=== PATIENT | female | born 1995 | race Two or more races ===

== ENCOUNTER 2025-02-01 14:38 | Emergency (ER) | payer MEDICAID, SELFPAY ==
[2025-02-01 14:39] VITALS: BMI 37.4
[2025-02-01 16:00] VITALS: BP 113/75; PULSE 65; RESP 16; TEMP 37; O2SAT 99
[2025-02-01] MEDS: LIDOCAINE HCL 1% 20 ML VIAL 10 ML INFL (16:35)
--- NOTE | 2025-02-01 17:34 | PD.EDHAND ---
Upper Extremity Injury RME/HPI General Chief Complaint: Hand/Wrist Problems Stated Complaint: R PINKY INJURY S/P LIFTED NAIL Time Seen by Provider: 02/01/25 14:47 Arrival date/time: 02/01/25 14:38 This is a 29-year-old female that comes in with a complaint complaint of right fifth digit nail avulsion. Patient had acrylic nails and she hit her hand in the car and bent the nail back. Patient's acrylic nail took patient's own nail off as well and is barely hanging. Patient denies any other trauma to her finger. Related Data Previous Rx's ?Medication ?Instructions ?Recorded doxycycline hyclate 100 mg tablet 100 mg PO BID #14 tabs 02/01/25 ibuprofen 800 mg tablet 800 mg PO Q6H PRN pain #14 tabs 02/01/25 Allergies Allergy/AdvReac Type Severity Reaction Status Date / Time No Known Allergies Allergy Verified 02/01/25 14:42 Review of Systems Review of Systems Systems Reviewed: All systems reviewed, normal except as documented Past Medical History Past Medical History NEUROLOGIC: Negative Neurological Disorders or Seizures CARDIAC: Negative Cardiac Disorders or Congestive Heart Failure RESPIRATORY: Negative Chronic Obstructive Pulmonary Disease (COPD) GASTROINTESTINAL: Positive Gastrointestinal Disorders (STOMACH ULCERS, GASTRITIS.) GENITOURINARY: Negative Genitourinary Disorders or Renal Disease REPRODUCTIVE: Positive Previous Pregnancies; Negative Endometriosis, Pelvic Inflammatory Disease or Uterine Prolapse MUSCULOSKELETAL: Positive Musculoskeletal Disorders and Arthritis ENDOCRINE: Negative Endocrine Disorders, Diabetes Mellitus Type 1 or Diabetes Mellitus Type 2 HEMATOLOGIC: Negative Blood Disorders PSYCHO/SOCIAL: Positive Depression (LAST IN 2018) OTHER HISTORY: Positive Hospitalization; Negative Autoimmune Disease, Down Syndrome, Developmental Delay, Shingles, Falls, Blood Transfusions, Blood Transfusion Reaction, Anesthesia Reactions, MRSA, VRSA, Vancomycin-Resistant Enterococci, Human Immunodeficiency Virus (HIV), Chicken Pox, Measles, Mumps, Rubella (Dutch Measles), Pertussis, Clostridium Difficile or Cancer Family History FAMILY HISTORY: Positive Family Cardiac Disorders (PATERNAL GRANDFATHER- HEART ATTACK.) and Family Cancer (PATERNAL UNCLE GRANDMOTHER-CA); Negative Family Psychiatric Problems, Family Respiratory Disorders, Family Gastrointestinal Problems, Family Surgery or Family Anesthesia Reaction Surgical History SURGICAL: Positive Abdominal Surgery; Negative Cardiac Surgery, Endocrine Surgery, Ear Surgery, Nephrectomy, Joint Replacement, Neurologic Surgery or Section Social History SMOKING STATUS: Never smoker SECOND HAND EXPOSURE: No SUBSTANCE USE: does not use ED Exam Narrative Physical exam: VITAL SIGNS: Reviewed. GENERAL APPEARANCE: Alert and interactive, follows commands, no acute distress HEAD AND FACE: Non-traumatic. ENT: PERRL, conjuctiva pink and clear, eyelid no trauma, Mucous membrane moist. NECK: Supple, nontender, no nuchal rigidity. CHEST: No tenderness, no crepitus, no paradoxical movement, no retractions. LUNGS: breathing even and unlabored HEART: Regular rate, cap refill less than 2 seconds ABDOMEN: Soft, nondistended, no guarding, nontender, no rebound, no masses, NEUROLOGICAL: Gross motor function intact sensory function intact, Appropriate for age. MUSCULOSKELETAL: low back nontender, full range of motion. no midline tenderness, no meningismus, no step offs EXTREMITIES: No redness no swelling no skin breakdown on bilateral foot and leg. Distal neurovascular status intact bilateral foot SKIN: Color pink, dry, left fifth digit nail avulsion almost completely partially off nail no laceration and nailbed Course Quality Measures none Orders Category Date Time Status Doxycycline [Vibramycin] Med 02/01/25 17:37 Discontinued 100 mg PO X1 ONE Ibuprofen Tab [Motrin Tab] Med 02/01/25 17:37 Discontinued 800 mg PO X1 ONE Lidocaine 1% 20 ml [Xylocaine 1% 20 ML] Med 02/01/25 16:23 Discontinued 10 ml INFL X1 ONE Vital Signs Vital signs: Vital Signs Temperature 98.6 F 02/01/25 16:00 Pulse Rate 65 02/01/25 16:00 Respiratory Rate 16 02/01/25 16:00 Blood Pressure 113/75 02/01/25 16:00 Pulse Oximetry (%) 99 02/01/25 16:00 Oxygen Delivery Method Room Air 02/01/25 16:00 PROCEDURES: Nerve Block Nerve Block 1: Time out performed: Yes Local Anesthetic: lidocaine 1% Amount of anesthesia used (mL): 3 Side: left Nerve Blocks: digital Procedure Successful: Yes Patient Tolerated Procedure: well and no complications Extremity Injury MDM Narrative [facility] Narrative:: Digital block done to left fifth digit. No on fifth digit of hand on the left side almost completely off already. Patient has no lacerations no other wounds. After I digitally blocked patient's left fifth digit I removed the nail with no issues. Patient Toller procedure well Dressing placed over wound. Will send patient home with antibiotics and pain medication. Patient told to follow-up with primary provider in 1 to 2 days. [place] to the emergency room symptoms change or worsen. I did explain to patient that it is going to take time for her nail to grow back. I told her to keep it clean and dry and not to put acrylic nails on it for a very long time. Patient data External records reviewed:: [facility] previous records Clinical information provided by:: patient Social determinants that could affect healthcare access:: none Patient has the following chronic illnesses:: None How is presenting disease/condition affected by chronic disease/condition?: no chronic disease Evaluation data The following diagnostics were reviewed and interpreted by me:: other (specify) (None) Lab and/or radiology exams considered but not ordered:: None Interpretation Summary: See note Medications / Prescriptions Medications or Prescriptions considered but not ordered:: See note Medication administrations:: Medication Administration History Discontinued Medications Doxycycline Hyclate (Doxycycline 100 Mg Tablet) 100 mg PO X1 ONE Stop: 02/01/25 17:38 Last Admin: 02/01/25 17:46 Dose: 100 mg Documented By: LIZETH Ibuprofen (Ibuprofen Tab 400 Mg Tablet) 800 mg PO X1 ONE Stop: 02/01/25 17:38 Last Admin: 02/01/25 17:47 Dose: Not Given Documented By: OA Non-Admin Reason: Discontinued Lidocaine HCl (Lidocaine Hcl 1% 20 Ml Vial) 10 ml INFL X1 ONE Stop: 02/01/25 16:24 Last Admin: 02/01/25 16:35 Dose: 10 ml Documented By: OA See MAR Consultations Consultation(s) initiated? (list below): No Diagnosis Upper Extremity Injury Differential Diagnosis: other (Nail avulsion, nail fracture, laceration) Most likely diagnosis given after review of the tests above:: Nail avulsion Admission Indicated Admission indicated?: not indicated Admission Request Was there a request for admission?: No Disposition Plan Disposition Plan: Discharge Discharge Attestation Discharge Attestation: The patient and all family members were given an opportunity to ask questions and understood the discharge instructions. Discharge instructions specifically effects, indications for sooner follow up or return to the emergency department, and the expected course of current diagnosis. Patient condition: Stable Discharge Plan Plan Patient Disposition: HOME (Self Care) Patient condition on transfer: Stable Prescriptions/Referrals Prescriptions/Med Rec: New doxycycline hyclate 100 mg tablet 100 mg PO BID Qty: 14 0RF ibuprofen 800 mg tablet 800 mg PO Q6H PRN (Reason: pain) Qty: 14 0RF Referrals: No Primary/Family,Physician [Primary Care Provider] - In 1 week Problem List Clinical Impression: Avulsion of nail Patient/Caregiver Discharge Instructions Discharge Activity: activity as tolerated Education Materials: ED FINGERNAIL REMOVAL Additional Instructions: Follow up with primary provider in 1-2 days. Come back to ED if symptoms change or worsen. Keep area clean and dry. Print Language: Scottish Stand Alone Forms: Jennifer Award Info., Patient Portal Info Letter PA/CLIENT SPECIALIST Supervising Physician PA/CLIENT SPECIALIST Supervising Physician: KYRIE
[2025-02-01] MEDS: DOXYCYCLINE 100 MG TABLET PO (17:46)
== END 2025-02-01 18:03 | disposition home or self-care (01) ==
PROVIDERS: Emergency Provider Emergency Medicine
DX: S61.306A Unspecified open wound of right little finger with damage to nail, initial encounter (principal); W22.8XXA Striking against or struck by other objects, initial encounter; Y92.810 Car as the place of occurrence of the external cause
CPT/HCPCS: 64450; 99283; J3490; A9270